=== PATIENT | female | born 1965 | race African-American/Black ===

== ENCOUNTER → 2024-01-24 12:39 | Outpatient (REF) | payer BC, OTHER, SELFPAY | LOC: HWRAD 12:39 | PROVIDERS: ATTENDING PHYSICIAN Obstetrics & Gynecology; FAMILY PHYSICIAN Internal Medicine | DX: N95.0 Postmenopausal bleeding (principal) | CPT/HCPCS: 76830; 76856 ==

== ENCOUNTER → 2024-02-21 10:41 | Outpatient (REF) | payer BC, OTHER, SELFPAY | LOC: WDC 10:41 | PROVIDERS: ATTENDING PHYSICIAN Obstetrics & Gynecology; FAMILY PHYSICIAN Internal Medicine | DX: N63.10 Unspecified lump in the right breast, unspecified quadrant (principal) | CPT/HCPCS: 76642; 77061; 77065 ==

== ENCOUNTER → 2024-08-28 14:17 | Outpatient (REF) | payer BC, OTHER, SELFPAY | LOC: WDC 14:17 | PROVIDERS: ATTENDING PHYSICIAN Obstetrics & Gynecology; FAMILY PHYSICIAN Internal Medicine | DX: R92.8 Other abnormal and inconclusive findings on diagnostic imaging of breast (principal) | CPT/HCPCS: 76642 ==

== ENCOUNTER → 2024-11-06 14:15 | Outpatient (REF) | payer BC, OTHER, SELFPAY | LOC: HWRAD 14:15 | PROVIDERS: ATTENDING PHYSICIAN Neurological Surgery; FAMILY PHYSICIAN Internal Medicine | DX: I67.1 Cerebral aneurysm, nonruptured (principal) | CPT/HCPCS: 70450 ==

== ENCOUNTER → 2024-12-20 14:58 | Outpatient (REF) | payer BC, OTHER, SELFPAY | LOC: HWRAD 14:58 | PROVIDERS: ATTENDING PHYSICIAN Orthopaedic Surgery; FAMILY PHYSICIAN Internal Medicine | DX: M17.0 Bilateral primary osteoarthritis of knee (principal); S83.242D Other tear of medial meniscus, current injury, left knee, subsequent encounter; S83.241D Other tear of medial meniscus, current injury, right knee, subsequent encounter; M23.612 Other spontaneous disruption of anterior cruciate ligament of left knee; M23.611 Other spontaneous disruption of anterior cruciate ligament of right knee; S83.412D Sprain of medial collateral ligament of left knee, subsequent encounter; M71.22 Synovial cyst of popliteal space [Baker], left knee; M71.21 Synovial cyst of popliteal space [Baker], right knee; M25.462 Effusion, left knee; M25.461 Effusion, right knee | CPT/HCPCS: 73560; 73565 ==

== ENCOUNTER → 2025-01-09 14:23 | Outpatient (REF) | payer BC, OTHER, SELFPAY | LOC: HWRAD 14:23 | PROVIDERS: ATTENDING PHYSICIAN Orthopaedic Surgery; FAMILY PHYSICIAN Internal Medicine | DX: M71.21 Synovial cyst of popliteal space [Baker], right knee (principal); M71.22 Synovial cyst of popliteal space [Baker], left knee; M17.0 Bilateral primary osteoarthritis of knee; S83.241D Other tear of medial meniscus, current injury, right knee, subsequent encounter; M23.611 Other spontaneous disruption of anterior cruciate ligament of right knee; M23.612 Other spontaneous disruption of anterior cruciate ligament of left knee; S83.411D Sprain of medial collateral ligament of right knee, subsequent encounter; S83.412D Sprain of medial collateral ligament of left knee, subsequent encounter; M25.461 Effusion, right knee; M25.462 Effusion, left knee | CPT/HCPCS: 76882 ==